=== PATIENT | male | born 1945 | race Caucasian/White ===

== ENCOUNTER 2022-10-08 10:49 | Outpatient (CLI) | payer MEDICARE, BC ==
--- NOTE | 2022-10-08 12:15 | Sleep Patient Instructions ---
Sleep Center Visit Summary - Patient Visit Information Reason for Visit: Initial visit to establish care for BIPAP therapy - Patient Instructions Additional Instructions: You were here for follow up of BIPAP therapy. You will be continued on BiPAP therapy with pressure at 18/12 cmH2O with pressure support. Please let us know if the pressure change is uncomfortable and we can make further adjustments of the pressure. You should follow up with sleep care in 1-2 months. You may contact us sooner for any questions or concerns. - Clinic Information Contact: [facility] [address] [place] [address] [email or web address] T: [phone]
[2022-10-08 12:34] VITALS: BP 120/64
--- NOTE | 2022-10-08 12:34 | SLEEP CARE CONSULTATION ---
Information from patient questionnaire entered by Ember Hopkins. I have reviewed and concur with the information entered by Ember Hopkins. This document represents the service I personally performed and the decisions made by me, Daniela Hernández ARNP. History of Present Illness Service Date and Time: 10/08/2022 1049 Reason for Visit: New patient, Previously diagnosed sleep apnea, sleep apnea on CPAP therapy Accompanied by: Spouse (Ninfa) Chief Complaint: reports: Excessive daytime sleepiness, Fatigue Date of Onset: 5 MONTHS Usual bedtime: 12 MIDNIGHT Time it takes to fall asleep: 5-10MIN Snores at night: No Observed to quit breathing while asleep: Yes Sleeps alone due to snoring: No Number of times waking at night: 2-3 Reasons for waking at night: reports: Bathroom Toss, Turn, or Twitch while sleeping: Yes Recalls having dreams: No Usually gets out of bed at: 0900 Feels refreshed in the morning: No Morning headache: No Sleepy or fatigued during the day: Yes Ever fallen asleep while driving: No Takes day naps: Yes Dreams during day naps: Yes Prior sleep studies: Yes Year and Where: [facility] 2018 Additional HPI information: IRMA BRUNETT was previously diagnosed to have very severe, AHI 79.5, obstructive sleep apnea-hypopnea syndrome as seen in a split-night study done 04/05/2013 through [facility] and comes in today to establish care for BIPAP therapy. He has been on a PAP machine for 19 years. - Parasomnia Symptoms Ever been unable to move upon waking from sleep: No Walks in sleep: No Talks in sleep: No Ever acted out dreams in sleep: No Ever felt weak in the knees when startled or emotional: No Bothered by creepy, crawly, restless sensations in legs: Yes (2-3 nights a week; taking Pramipexole and gabapentin) Problems with memory or concentration: No CPAP Compliance Data - Data Reviewed with Patient Average duration of nightly device use: 6 hours 40 minutes Compliance rate %: 96.7 (3030 days used) Current pressure setting (cmH2O): 25/4 with pressure support 8/2 Average residual AHI: 7.3 Average large leak: 10 secs Compliance data discussion: He has been using [employer] for his DME supplies. He has a Dreamstation Auto Bipap that was replaced by [employer]. He is using a medium cushion, ResMed AirTouch F20 mask. He changes his cushion regularly, 1 time a month. Subjective Patient concerns: reports: dry mouth, nose, throat. denies: aerophagia, mask discomfort, air blowing in eyes, mask leak noise, condensation in mask/hose, nasal congestion, epistaxis Observed to snore while using device: No Current pressure setting perceived as: comfortable On therapy, patient: reports: sleeping better, awakening more refreshed. denies: drowsiness while driving Initial Viola Sleepiness Scale score: 11 (10/08/22) Past Medical History Past Medical History: reports: Congestive Heart Failure, Arthritis, Other (RESTLESS LEG DISORDER; hiatal hernia; asbestos in lung; left eye 20/400) Social History The patient's occupation is a RE. Patient is and lives in [place]. Have you smoked in the past 12 months: No Alcohol use: Yes Alcohol amount and frequency: 1 BEER 1 X MONTH Caffeine use: No Family History Family history of sleep disordered breathing: Yes Family Hx Sleep Apnea: Father: Sleep apnea - Untreated, Sibling: Sleep apnea - Treated Allergies and Home Medications Known drug allergies: Yes (SULFA, CIPRO) Drug allergies reviewed: Yes Home medication list reviewed: Yes (see updated list in EMR) Review of Systems Weight gain over past 5 years: 30 Cardiovascular: reports: leg or foot swelling. denies: high blood pressure Respiratory: reports: sputum production Gastrointestinal: reports: heartburn Urinary: reports: frequency, urgency Neurological: denies: headaches Psychiatric: denies: anxiety, depression Ear/Nose/Throat: reports: sinus problems, dry mouth/throat, tonsillectomy, wisdom teeth removed Endocrine: reports: increased urination Musculoskeletal: reports: joint pain, back pain, muscle pain or cramping, mobility problems Immunologic: reports: sneezing, allergies to food or environment (seasonal allergies, using Flonase; dust mites) Physical Exam Vital signs obtained and entered by: EMBER Mauricio MA Blood Pressure: 120/64 (LEFT ARM) Cuff size: long Heart Rate: 60 O2 Saturation: 96 Height: 5 ft 10 in Weight: 331 lb Body Mass Index: 47.5 BMI Classification: Morbidly Obese Neck circumference: 20 Heart: regular rate and rhythm Lungs: clear bilaterally Impression and Plan 1. Obstructive Sleep Apnea-Hypopnea Syndrome, very severe, with good treatment compliance and fair apnea control. On BIPAP therapy, the patient has better sleep quality and is more rested overall. Patient states that he has not been getting very good sleep lately. He got a replacement device from [employer] and is not sure it is set properly. He is taking more naps in the afternoon and does not have energy to do things like he normally would do. After reviewing his report he does have an elevated AHI at 7.3. I will make adjustments to his pressure settings and have him come back to see how this is doing. The patients pressure will be changed to auto BIPAP 18/12 cmH20 with pressure support 8/2 for elevation of residual AHI. Patient advised to contact me if pressure change is uncomfortable so that it can be adjusted. Goals for apnea control discussed. Patient is also having issues with his mask. He feels like the straps or something is just not fitting right on his AirTouch F20. He feels he can work for now and we will address this at his next appointment. Patient's apnea severity and rationale for treatment to reduce apnea, improve sleep quality and reduce cardiovascular and cerebrovascular events was reviewed. I also reviewed the benefit of consistent device use of BIPAP for cardiac disease (CHF) and restless leg syndrome. 2. Morbid Obesity, unspecified. Currently patients BMI is 47.5. Obesity increases the risk of apnea, BIPAP pressure requirements and overall health risks especially cardiovascular and diabetes. Thus patient is advised to lose weight. * Change Auto BIPAP pressure to 18/12 cmH2O with pressure support 8/2. * Update supplies * Notify me if snoring with mask or feeling that the pressure is too much or too little * Attempt to lose weight * Call this office if any problems using BIPAP * Return for follow up in 1-2 months, or sooner if concerns arise Counseling Topics: Spare mask, Weight loss health impact Visit Type: In Office Other Participants: Spouse/Significant Other Time Spent with Patient (minutes): 45 Provider Statement: I spent 100% of the Face to Face Visit with the patient with greater than 50% spent counseling the patient and coordination of care.
== END 2022-10-08 10:50 | disposition home or self-care (01) ==
LOC: SC 10:49
PROVIDERS: ATTEND Nurse Practitioner Family
DX: G47.33 Obstructive sleep apnea (adult) (pediatric) (principal); E66.01 Morbid (severe) obesity due to excess calories; Z68.42 Body mass index [BMI] 45.0-49.9, adult
CPT/HCPCS: 99204; G0463; 99212

== ENCOUNTER 2023-12-18 10:45 | Outpatient (CLI) | payer MEDICARE, BC ==
--- NOTE | 2023-12-18 11:38 | Sleep Patient Instructions ---
Sleep Center Visit Summary - Patient Visit Information Reason for Visit: Annual follow-up - Patient Instructions Additional Instructions: You will continue with BiPAP therapy with pressure set at 18/12 cmH2O. A supply prescription will be updated with your DME supplier. I have added an order to update your PAP machine. Please call the office to schedule a compliance follow up once you get your new device. We encourage you to continue to try to lose weight. Please follow up with the sleep care office one month after obtaining new device. - Clinic Information Contact: [facility] [address] [place] [address] [email or web address] T: [phone]
--- NOTE | 2023-12-18 11:41 | SLEEP CARE CONSULTATION ---
Information from patient questionnaire entered by Ember Hopkins. I have reviewed and concur with the information entered by Ember Hopkins. This document represents the service I personally performed and the decisions made by me, Daniela Hernández ARNP. History of Present Illness Service Date and Time: 12/18/2023 1045 Previous diagnosis: Very Severe, Obstructive Sleep Apnea-Hypopnea Syndrome AHI: 79.5 (in 2012) Reason for follow up: annual (LAST SEEN 11/2022) Accompanied by: Spouse (Karmen) Equipment type: BiPAP (Dreamstation BiPAP recertified; SD CARD NEEDED) Equipment obtained from: [employer] (getting supplies) Mask style: Full face (medium cushion) Backup mask available: Yes Last cushion change: 2 months Prior sleep studies: Yes Year and Where: 2012 HPI additional information: IRMA BURNETT was diagnosed to have very severe, AHI 79.5, obstructive sleep apnea-hypopnea syndrome and returned today for CPAP therapy annual follow- up. Sleep Study - Results Prior sleep studies: Yes Year and Where: 2012 CPAP Compliance Data - Data Reviewed with Patient Average duration of nightly device use: 6 HRS 41 MINS 21 SEC Compliance rate %: 97 (12/18/22-12/17/23; 364/365 days used) Current pressure setting (cmH2O): 18/12 Average residual AHI: 3.6 Central apnea: 0.1 Obstructive apnea: 0.4 Hypopnea: 3.1 Average large leak: 1 hours 2 mins Subjective Patient concerns: reports: air blowing in eyes, mask leak noise, nasal congestion, dry mouth, nose, throat. denies: aerophagia, mask discomfort, condensation in mask/hose, epistaxis Observed to snore while using device: No Current pressure setting perceived as: comfortable On therapy, patient: reports: sleeping better, awakening more refreshed, being more awake and alert during the day, more rested overall. 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 Obstructive Sleep Apnea-Hypopnea Syndrome, very severe, with good treatment compliance and good apnea control. On BIPAP therapy, the patient has better sleep quality and is more rested overall. He was advised to change his mask cushion more often to reduce air leaking into eyes and leak noises. His BiPAP was last update in 2019. The patients CPAP is over 5 years old and of reasonable use. Thus, the CPAP will be updated. A DWO prescription will be made. Compliance guidelines for new device and follow up discussed. Patient's apnea severity and rationale for treatment to reduce apnea, improve sleep quality and reduce cardiovascular and cerebrovascular events was reviewed. I also reviewed the benefit of consistent device use of BIPAP for cardiac disease (CHF), RLS. 2. Obesity, unspecified. Currently patients BMI is 43.5. Obesity increases the risk of apnea, BiPAP pressure requirements and overall health risks especially cardiovascular and diabetes. Thus patient is advised to lose weight. * Continue BiPAP pressure at 18/12 cmH2O * Update machine * Update supply prescription. * Notify me if snoring with mask or feeling that the pressure is too much or too little * Attempt to lose weight * Call this office if any problems using BIPAP * Return for follow up one month after obtaining new device, or sooner if concerns arise Counseling Topics: Spare mask, Weight loss health impact Prescriptions: BiPAP, Device supplies Follow up with Sleep Care in: other (compliance followup) Visit Type: In Office Time Spent with Patient (minutes): 22 Provider Statement: I spent 100% of the Face to Face Visit with the patient with greater than 50% spent counseling the patient and coordination of care.
[2023-12-18 11:44] VITALS: BP 134/55; O2SAT 95
== END 2023-12-18 10:46 | disposition home or self-care (01) ==
LOC: SC 10:45
PROVIDERS: ATTEND Nurse Practitioner Family
DX: G47.33 Obstructive sleep apnea (adult) (pediatric) (principal); E66.01 Morbid (severe) obesity due to excess calories; Z68.41 Body mass index [BMI] 40.0-44.9, adult
CPT/HCPCS: 99213; G0463; 99212